=== PATIENT | female | born 1985 | race Caucasian/White ===

== ENCOUNTER 2016-10-10 18:18 | Emergency (ER) | payer BC, OTHER ==
[2016-10-10 20:04] LABS: HEMOGLOBIN 12.7 gm/dl (12.3-15.3); RED BLOOD COUNT 4.11 M/UL (4.00-5.10); WHITE BLOOD COUNT 5.3 K/UL (4.5-11.0)
[2016-10-10 20:20] LABS: BUN/CREATININE RATIO 28 (0-10)
== END 2016-10-10 22:15 | disposition home or self-care (01) ==
LOC: ER1 18:18
PROVIDERS: Physician Assistant
DX: R55 Syncope and collapse (principal); S00.91XA Abrasion of unspecified part of head, initial encounter; E86.0 Dehydration; W19.XXXA Unspecified fall, initial encounter
CPT/HCPCS: 70450; 71010; 72125; 80053; 80307; 81001; 83735; 84484; 84703; 85025; 87086; 93005; 99284

== ENCOUNTER 2020-07-25 18:44 | Inpatient (IN) | payer OTHER ==
[~2020-07-25] VITALS: Ht 154.9 cm; Wt 97.5 kg
[2020-07-25 21:59] LABS: HEMOGLOBIN 12.6 gm/dl (12.3-15.3); WHITE BLOOD COUNT 12.3 K/UL (4.5-11.0)
[2020-07-25 22:17] LABS: BUN/CREATININE RATIO 32 (0-10)
[2020-07-26] MEDS ORDERED: LEVOTHYROXINE88 MCG PO (13:37)
[2020-07-26] MEDS ORDERED: ESCITALOPRAM OX10 MG PO (13:38)
[2020-07-26] MEDS ORDERED: DESYREL 50 MG T50 MG PO (13:38)
[2020-07-26] MEDS ORDERED: RABEPRAZOLE SOD20 MG PO (13:39)
[2020-07-26] MEDS ORDERED: MELATONIN10 M2 PO (13:39)
[2020-07-26] MEDS ORDERED: STOOL SOFTENER240 MG PO (13:40)
[2020-07-26 22:27] LABS: HEMOGLOBIN 11.6 gm/dl (12.3-15.3); RED BLOOD COUNT 3.7 M/UL (4.00-5.10)
[2020-07-26 22:52] LABS: BUN/CREATININE RATIO 19 (0-10)
[2020-07-26 23:22] LABS: WHITE BLOOD COUNT 7.2 K/UL (4.5-11.0)
[2020-07-27 07:33] LABS: HEMOGLOBIN 10.8 gm/dl (12.3-15.3); RED BLOOD COUNT 3.49 M/UL (4.00-5.10); WHITE BLOOD COUNT 8.2 K/UL (4.5-11.0)
[2020-07-27 07:51] LABS: BUN/CREATININE RATIO 19 (0-10)
[2020-07-28] MEDS ORDERED: PERCOCET 5/325 T1 EA PO (13:00)
[2020-07-28] MEDS ORDERED: ENOXAPARIN40 MG/0.4 SC (13:00)
[2020-07-28] MEDS ORDERED: PROTONIX40 MG PO (13:00)
[2020-07-28] MEDS ORDERED: IBUPROFEN400 MG PO (13:00)
--- NOTE | 2020-07-28 13:40 | NUR ---
CALLED OR. SPOKE WITH GABRIELA CLARK. SHE VERIFIED WITH DR STERLING THAT PT OK TO DISCHARGE HOME.
[2020-12-02] MEDS ORDERED: LEXAPRO10 MG PO (08:05)
[2020-12-02] MEDS ORDERED: TRAZODONE HCL50 MG PO (08:05)
[2020-12-02] MEDS ORDERED: SYNTHROID88 MCG PO (08:05)
[2020-12-02] MEDS ORDERED: ACIPHEX20 MG PO (08:06)
[2020-12-02] MEDS ORDERED: MELATONIN10 M2 PO (08:06)
== END 2020-07-28 15:51 | disposition home or self-care (01) | DRG 488 ==
LOC: ER1 18:44 → M/S 21:28 → CDU 21:28 → M/S 07-26 22:53
PROVIDERS: Orthopaedic Surgery; Physician Assistant; ADMIT Internal Medicine
PROC: 0SQD0ZZ Repair Left Knee Joint, Open Approach (ICD-10-PCS; 2020-07-26)
PROC: 0QSH04Z Reposition Left Tibia with Internal Fixation Device, Open Approach (ICD-10-PCS; principal; 2020-07-26 19:00)
DX: S82.142A Displaced bicondylar fracture of left tibia, initial encounter for closed fracture (principal); Z68.41 Body mass index [BMI] 40.0-44.9, adult; Z20.822 Contact with and (suspected) exposure to COVID-19; E03.9 Hypothyroidism, unspecified; F41.9 Anxiety disorder, unspecified; E66.9 Obesity, unspecified; F32.9 Major depressive disorder, single episode, unspecified; G47.00 Insomnia, unspecified; K21.9 Gastro-esophageal reflux disease without esophagitis; Y93.44 Activity, trampolining; Y92.39 Other specified sports and athletic area as the place of occurrence of the external cause
CPT/HCPCS: 36415; 71045; 73560; 73590; 73700; 76000; 80048; 80053; 84703; 85025; 85027; 86850; 86900; 86901; 93005; 96372; 96374; 96375; 96376; 97110-GP-CQ; 97116; 97116-GP-CQ; 97162; 97166; 97530; 99284; C1713; C1762; J0171; J0690; J1100; J1170; J1650; J1885; J2001; J2250; J2270; J2405; J2704; J2710; J2795; J3010; J7030; J7120; U0002

== ENCOUNTER → 2020-12-02 | Day surgery (SDC) | payer OTHER ==
[~2020-12-02] MED LIST: ACIPHEX20 MG PO; DESYREL 50 MG T50 MG PO; ENOXAPARIN40 MG/0.4 SC; ESCITALOPRAM OX10 MG PO; IBUPROFEN400 MG PO; LEVOTHYROXINE88 MCG PO; LEXAPRO10 MG PO; MELATONIN10 M2 PO; PERCOCET 5/325 T1 EA PO; PROTONIX40 MG PO; RABEPRAZOLE SOD20 MG PO; STOOL SOFTENER240 MG PO; SYNTHROID88 MCG PO; TRAZODONE HCL50 MG PO
== END | disposition home or self-care (01) ==
LOC: OR 06:50
DX: K21.00 Gastro-esophageal reflux disease with esophagitis, without bleeding (principal); K31.9 Disease of stomach and duodenum, unspecified; F41.9 Anxiety disorder, unspecified; E03.9 Hypothyroidism, unspecified; E66.01 Morbid (severe) obesity due to excess calories; Z68.41 Body mass index [BMI] 40.0-44.9, adult; Z79.899 Other long term (current) drug therapy; Z79.890 Hormone replacement therapy
CPT/HCPCS: 84703; J2704; J7040